=== PATIENT | male | born 1965 | race Caucasian/White ===

== ENCOUNTER 2017-01-30 07:46 | Emergency (ER) | payer MEDICARE, OTHER ==
[2017-01-30 13:35] LABS: TMH ALT - JH 17 (8-60)
[2017-01-30 14:36] LABS: TMH HEPATITIS C AB - JH Positive (Negative)
[2017-01-30 14:37] LABS: TMH HEPATITIS B SURF AB QT -JH <1.0 (10.0-1000.0)
== END 2017-01-30 08:47 | disposition home or self-care (01) ==
LOC: CFTX 07:46 → CED 07:46 → CFTX 08:44 → CED 08:44 → CFTX 08:47
PROVIDERS: Physician Assistant
DX: K64.5 Perianal venous thrombosis (principal); F17.200 Nicotine dependence, unspecified, uncomplicated; Z90.49 Acquired absence of other specified parts of digestive tract
CPT/HCPCS: 46083; 84460; 86706; 86803; 87806; 99283